=== PATIENT | female | born 1940 | race African-American/Black ===

== ENCOUNTER 2022-05-16 19:36 | Inpatient (IN) | payer OTHER ==
[2022-05-16] MEDS ORDERED: FUROSEMIDE 40 MG/4 ML INJECTABLE VIAL IVPUSH ONE ×2 (20:26→21:55)
[2022-05-16] MEDS ORDERED: FUROSEMIDE 40 MG/4 ML INJECTABLE VIAL ONE ×2 (20:36→22:35)
[2022-05-16 21:15] LABS: BASO % 0.4 % (0-2.0); EOS % 0.2 % (0-4.5); HEMATOCRIT 33.8 % (32.4-45.2); HEMOGLOBIN 10.8 GM/dL (10.7-15.3); LYMPH % 6.9 % (8-40); MCH 30.4 pg (25.7-33.7); MEAN CELL VOLUME 94.8 fl (80-96); MEAN PLT VOLUME 8.4 fl (7.5-11.1); MONO % 10.8 % (3.8-10.2); NEUT % 81.7 % (42.8-82.8); PLATELET COUNT 270 10^3/uL (134-434); RBC 3.57 M/mm3 (3.60-5.2); RDW 15.6 % (11.6-15.6)
[2022-05-16 21:17] LABS: VENOUS O2 SATURATION 85.3 % (70-80); VENOUS PH 7.202 (7.310-7.410)
[2022-05-16 21:19] LABS: VENOUS PCO2 136.7 mmHg (38-52)
[2022-05-16 21:46] LABS: CHLORIDE 94 mmol/L (98-107); SODIUM 145 mmol/L (136-145)
[2022-05-16 21:50] LABS: ALBUMIN 3.6 g/dl (3.4-5.0); BLOOD UREA NITROGEN 18.7 mg/dL (7-18); GLUCOSE,RANDOM 125 mg/dL (74-106); INR 0.99 (0.83-1.09); PROTHROMBIN TIME (PATIENT) 11.4 SEC (9.7-13.0)
[2022-05-16 21:53] LABS: ACTIVATED PTT 30.1 SECONDS (25.2-36.5); SGPT/ALT 27 U/L (13-61)
[2022-05-16 21:54] LABS: SGOT/AST 29 U/L (15-37)
[2022-05-16 21:55] LABS: BILIRUBIN,TOTAL 0.5 mg/dL (0.2-1)
[2022-05-16 21:56] LABS: ALK PHOS 48 U/L (45-117)
[2022-05-16 21:58] LABS: N-TERMINAL BNP 5199.5 pg/ml (5-450)
[2022-05-16 22:06] LABS: ANION GAP 6 MMOL/L (8-16); CO2 > 45 mmol/L (21-32)
[2022-05-16] MEDS ORDERED: ASPIRIN 81 MG CHEWABLE TABLETS PO ONE (22:20)
[2022-05-16] MEDS ORDERED: ENOXAPARIN NA (PORCINE) 60 MG/0.6 ML DISP.SYRIN SQ ONE ×2 (22:30→22:35)
[2022-05-16] MEDS ORDERED: ASPIRIN 81 MG CHEWABLE TABLETS ONE (22:35)
[2022-05-17] MEDS ORDERED: ALBUTEROL SO4 2.5/IPRATROPIUM 0.5 INH SOL 3 ML VIAL.NEB. NEB ONE ×2 (01:26→01:58)
[2022-05-17] MEDS ORDERED: LEVALBUTEROL HCL 0.63 MG/3 ML VIAL.NEB. IH PRN (02:03)
[2022-05-17] MEDS ORDERED: FUROSEMIDE 40 MG/4 ML INJECTABLE VIAL IVPUSH ONE (02:03)
[2022-05-17] MEDS ORDERED: methylPREDNISolone NA SUCC 125 MG/2 ML VIAL IVPUSH ONE (02:06)
[2022-05-17 02:26] LABS: ARTERIAL BLD GAS O2 SATURATION 98.2 % (95-98); ARTERIAL BLOOD GAS BASE EXCESS 22.1 mmol/L (-2-2); ARTERIAL BLOOD GAS PO2 160.3 mmHg (80-100)
[2022-05-17 02:28] LABS: ALLENS TEST POSITIVE
[2022-05-17 02:29] LABS: ARTERIAL BLOOD GAS pH 7.153 (7.350-7.450)
[2022-05-17 02:30] LABS: ARTERIAL BLOOD GAS PCO2 > 148.50 mmHg (35-45)
[2022-05-17 03:11] LABS: EPI CELLS 3 /uL (0-25.1); HYALINE CASTS 1 /uL (0-3.1); URINE APPEARANCE CLEAR; URINE BACTERIA 42 /uL (0-1359); URINE BILIRUBIN NEGATIVE (NEGATIVE); URINE COLOR YELLOW; URINE GLUCOSE (UA) NEGATIVE (NEGATIVE); URINE KETONE NEGATIVE (NEGATIVE); URINE LEUK ESTERASE 1+ (NEGATIVE); URINE NITRITE NEGATIVE (NEGATIVE); URINE PROTEIN TRACE (NEGATIVE); URINE RBC 12 /uL (0-23.9); URINE UROBILINOGEN 0.2 mg/dL (0.2-1.0); URINE WBC 2 /uL (0-25.8)
[2022-05-17 04:08] LABS: ALLENS TEST POSITIVE; ARTERIAL BLD GAS O2 SATURATION 84.9 % (95-98); ARTERIAL BLOOD GAS BASE EXCESS 23.8 mmol/L (-2-2); ARTERIAL BLOOD GAS PO2 67.3 mmHg (80-100); VENT MODE S/T; VENT RATE 16
[2022-05-17 04:09] LABS: ARTERIAL BLOOD GAS pH 7.183 (7.350-7.450)
[2022-05-17 04:10] LABS: ARTERIAL BLOOD GAS PCO2 > 148.50 mmHg (35-45)
[2022-05-17 05:42] LABS: ARTERIAL BLD GAS O2 SATURATION 91.1 % (95-98); ARTERIAL BLOOD GAS BASE EXCESS 22.5 mmol/L (-2-2); ARTERIAL BLOOD GAS PO2 78.1 mmHg (80-100); ARTERIAL BLOOD GAS pH 7.225 (7.350-7.450)
[2022-05-17 06:51] LABS: HEMATOCRIT 36.5 % (32.4-45.2); HEMOGLOBIN 11.2 GM/dL (10.7-15.3); MCH 29.1 pg (25.7-33.7); MCHC 30.6 g/dl (32.0-36.0); MEAN CELL VOLUME 95.1 fl (80-96); MEAN PLT VOLUME 9.2 fl (7.5-11.1); PLATELET COUNT 294 10^3/uL (134-434); RBC 3.84 M/mm3 (3.60-5.2); RDW 15.9 % (11.6-15.6); WHITE BLOOD COUNT 6.3 K/mm3 (4.0-10.0)
[2022-05-17 06:52] LABS: SODIUM 143 mmol/L (136-145)
[2022-05-17 06:53] LABS: CHLORIDE 89 mmol/L (98-107)
[2022-05-17 07:00] LABS: CHOLESTEROL 265 mg/dL (50-200); TRIGLYCERIDES 101 mg/dL (0-150)
[2022-05-17 07:01] LABS: CALCIUM 9.9 mg/dL (8.5-10.1); LACTIC ACID 2.4 mmol/L (0.4-2.0)
[2022-05-17 07:02] LABS: ALBUMIN 3.6 g/dl (3.4-5.0); BLOOD UREA NITROGEN 18.8 mg/dL (7-18); GLUCOSE,RANDOM 136 mg/dL (74-106); LDL CHOLESTEROL (ONLY SJRH) 115 mg/dL (5-100); MAGNESIUM 2.2 mg/dL (1.8-2.4)
[2022-05-17 07:04] LABS: ALK PHOS 50 U/L (45-117); CREATININE 0.9 mg/dL (0.55-1.3); HDL CHOLESTEROL 122 mg/dL (40-60); PHOSPHOROUS 5.2 mg/dL (2.5-4.9); SGOT/AST 25 U/L (15-37); SGPT/ALT 30 U/L (13-61)
[2022-05-17 07:06] LABS: BILIRUBIN,TOTAL 0.2 mg/dL (0.2-1); TOT PROT 7.5 g/dl (6.4-8.2)
[2022-05-17 07:19] LABS: ANION GAP 9 MMOL/L (8-16); CO2 > 45 mmol/L (21-32)
[2022-05-17 08:18] LABS: ARTERIAL BLD GAS O2 SATURATION 93.6 % (95-98); ARTERIAL BLOOD GAS BASE EXCESS 13.8 mmol/L (-2-2); ARTERIAL BLOOD GAS PO2 80.3 mmHg (80-100); ARTERIAL BLOOD GAS pH 7.288 (7.350-7.450)
[2022-05-17 08:21] LABS: ALLENS TEST POSITIVE
[2022-05-17 08:22] LABS: VENT MODE S/T; VENT RATE 18
[2022-05-17] MEDS ORDERED: ENOXAPARIN NA (PORCINE) 80 MG/0.8 ML DISP.SYRIN SQ ONE (09:29)
[2022-05-17] MEDS ORDERED: methylPREDNISolone NA SUCC 40 MG/1 ML VIAL ONE (09:29)
[2022-05-17] MEDS: ENOXAPARIN NA (PORCINE) 80 MG/0.8 ML DISP.SYRIN SQ SCH (09:35)
[2022-05-17] MEDS: methylPREDNISolone NA SUCC 40 MG/1 ML VIAL IVPUSH SCH ×2 (09:36→20:06)
[2022-05-17] MEDS ORDERED: PANTOPRAZOLE SODIUM 40 MG/100 ML BAG IVPB ONE (09:57)
[2022-05-17] MEDS ORDERED: CEFEPIME 1 GM/100 ML BAG IVPB ONE (09:57)
[2022-05-17] MEDS ORDERED: ENOXAPARIN NA (PORCINE) 40 MG/0.4 ML DISP.SYRIN SQ SCH (10:00)
[2022-05-17] MEDS ORDERED: CEFEPIME 0.5 GM in DEXTROSE 5%-WATER - 100 ML IVPB ONE (10:00)
[2022-05-17] MEDS: PANTOPRAZOLE SODIUM 40 MG/100 ML BAG IVPB SCH (10:26)
[2022-05-17 10:51] LABS: LACTIC ACID 2.6 mmol/L (0.4-2.0)
[2022-05-17] MEDS ORDERED: amLODIPine BESYLATE 5 MG TABLET (FP) ONE (10:56)
[2022-05-17] MEDS: amLODIPine BESYLATE 5 MG TABLET (FP) PO SCH (11:00)
[2022-05-17] MEDS: BUDESONIDE/FORMETEROL FUMARATE 80/4.5 mcg INHALER IH SCH ×2 (11:15→21:28)
[2022-05-17] MEDS: ALBUTEROL SO4 2.5/IPRATROPIUM 0.5 INH SOL 3 ML VIAL.NEB. NEB SCH ×3 (13:17→20:56)
[2022-05-17] MEDS ORDERED: AZITHROMYCIN IVPB 500 MG/250 ML BAG IVPB STA (14:36)
[2022-05-17] MEDS: LACTATED RINGERS SOLUTION 1,000 ML/1,000 ML INFUS.BAG IV SCH (21:45)
[2022-05-17] MEDS ORDERED: DEXMEDETOMIDINE PREMIX 400 MCG/100 ML BAG IVPB SCH (22:00)
[2022-05-18] MEDS: ALBUTEROL SO4 2.5/IPRATROPIUM 0.5 INH SOL 3 ML VIAL.NEB. NEB SCH ×6 (00:44→20:19)
[2022-05-18] MEDS: methylPREDNISolone NA SUCC 40 MG/1 ML VIAL IVPUSH SCH ×3 (01:07→17:11)
[2022-05-18 06:57] LABS: HEMATOCRIT 31.6 % (32.4-45.2); HEMOGLOBIN 10.2 GM/dL (10.7-15.3); MCH 30.3 pg (25.7-33.7); MCHC 32.4 g/dl (32.0-36.0); MEAN CELL VOLUME 93.7 fl (80-96); MEAN PLT VOLUME 9.1 fl (7.5-11.1); PLATELET COUNT 254 10^3/uL (134-434); RBC 3.38 M/mm3 (3.60-5.2); RDW 15.2 % (11.6-15.6); WHITE BLOOD COUNT 5.9 K/mm3 (4.0-10.0)
[2022-05-18 07:18] LABS: CHLORIDE 90 mmol/L (98-107); SODIUM 143 mmol/L (136-145)
[2022-05-18 07:23] LABS: CALCIUM 9.5 mg/dL (8.5-10.1); GLUCOSE,RANDOM 106 mg/dL (74-106)
[2022-05-18 07:24] LABS: ALBUMIN 3.5 g/dl (3.4-5.0); BLOOD UREA NITROGEN 16.2 mg/dL (7-18); MAGNESIUM 2.1 mg/dL (1.8-2.4)
[2022-05-18 07:27] LABS: CREATININE 0.8 mg/dL (0.55-1.3); SGOT/AST 27 U/L (15-37); SGPT/ALT 24 U/L (13-61)
[2022-05-18 07:30] LABS: ALK PHOS 43 U/L (45-117); BILIRUBIN,TOTAL 0.4 mg/dL (0.2-1); PHOSPHOROUS 3.4 mg/dL (2.5-4.9); TOT PROT 6.7 g/dl (6.4-8.2)
[2022-05-18 07:32] LABS: N-TERMINAL BNP 2666.5 pg/ml (5-450)
[2022-05-18 07:43] LABS: ANION GAP 8 MMOL/L (8-16); CO2 > 45 mmol/L (21-32)
[2022-05-18] MEDS: ENOXAPARIN NA (PORCINE) 80 MG/0.8 ML DISP.SYRIN SQ SCH (09:33)
[2022-05-18] MEDS: amLODIPine BESYLATE 5 MG TABLET (FP) PO SCH (09:34)
[2022-05-18] MEDS: AZITHROMYCIN IVPB 500 MG/250 ML BAG IVPB SCH (09:35)
[2022-05-18] MEDS: BUDESONIDE/FORMETEROL FUMARATE 80/4.5 mcg INHALER IH SCH ×2 (09:35→21:22)
[2022-05-18] MEDS: PANTOPRAZOLE SODIUM 40 MG/100 ML BAG IVPB SCH (09:43)
[2022-05-18] MEDS ORDERED: PANTOPRAZOLE SODIUM 40 MG VIAL IVPB SCH ×2 (10:00→10:15)
[2022-05-18] MEDS ORDERED: amLODIPine BESYLATE 2.5 MG TABLET (FP) PO SCH (10:14)
[2022-05-18 10:17] LABS: ANISOCYTOSIS 0; HELMET CELLS 0; HOWELL-JOLLY BODIES 0; MACROCYTOSIS 0; OVALOCYTE 0; ROULEAU 0; SICKELED CELLS 0; TARGET CELLS 0; TEAR DROP CELLS 0; TOXIC GRANULATION 0
[2022-05-18] MEDS ORDERED: ACETAMINOPHEN 325 MG TABLET (FP) PO PRN (10:18)
[2022-05-18] MEDS: LISINOPRIL 20 MG TABLET PO SCH (12:09)
[2022-05-18] MEDS: MINERAL OIL/PET HY-PHL TOPICAL OINTMENT 454 GM JAR TP SCH ×2 (12:10→21:19)
[2022-05-18] MEDS: TIOTROPIUM BROMIDE 2.5 MCG (SPIRIVA) RESPIMAT INHALER IH SCH (12:10)
[2022-05-18] MEDS: ATORVASTATIN CA 40 MG TABLET (FP) PO SCH (21:19)
[2022-05-18] MEDS: QUEtiapine FUMARATE 25 MG TABLET PO SCH (21:20)
[2022-05-18] MEDS: LACTATED RINGERS SOLUTION 1,000 ML/1,000 ML INFUS.BAG IV SCH (21:22)
[2022-05-19] MEDS: ALBUTEROL SO4 2.5/IPRATROPIUM 0.5 INH SOL 3 ML VIAL.NEB. NEB SCH ×7 (00:24→23:44)
[2022-05-19] MEDS: methylPREDNISolone NA SUCC 40 MG/1 ML VIAL IVPUSH SCH ×3 (01:04→17:57)
[2022-05-19 07:53] LABS: CHLORIDE 92 mmol/L (98-107); SODIUM 143 mmol/L (136-145)
[2022-05-19 07:56] LABS: CALCIUM 9.6 mg/dL (8.5-10.1)
[2022-05-19 07:57] LABS: ALBUMIN 3.1 g/dl (3.4-5.0); BLOOD UREA NITROGEN 21.8 mg/dL (7-18); GLUCOSE,RANDOM 85 mg/dL (74-106); HEMATOCRIT 31.5 % (32.4-45.2); MAGNESIUM 2.1 mg/dL (1.8-2.4); MCH 29.9 pg (25.7-33.7); MCHC 31.8 g/dl (32.0-36.0); MEAN CELL VOLUME 94.1 fl (80-96); MEAN PLT VOLUME 9.9 fl (7.5-11.1); PLATELET COUNT 256 10^3/uL (134-434); RBC 3.35 M/mm3 (3.60-5.2); RDW 15.1 % (11.6-15.6); WHITE BLOOD COUNT 6.8 K/mm3 (4.0-10.0)
[2022-05-19 08:00] LABS: CREATININE 0.8 mg/dL (0.55-1.3); SGOT/AST 18 U/L (15-37); SGPT/ALT 19 U/L (13-61)
[2022-05-19 08:01] LABS: BILIRUBIN,TOTAL 0.4 mg/dL (0.2-1); TOT PROT 5.9 g/dl (6.4-8.2)
[2022-05-19 08:02] LABS: ALK PHOS 39 U/L (45-117)
[2022-05-19 08:12] LABS: ANION GAP 6 MMOL/L (8-16); CO2 > 45 mmol/L (21-32)
[2022-05-19 09:38] LABS: ANISOCYTOSIS 0; MACROCYTOSIS 1+
[2022-05-19] MEDS: AZITHROMYCIN IVPB 500 MG/250 ML BAG IVPB SCH (09:42)
[2022-05-19] MEDS: LISINOPRIL 20 MG TABLET PO SCH (09:42)
[2022-05-19] MEDS: ENOXAPARIN NA (PORCINE) 80 MG/0.8 ML DISP.SYRIN SQ SCH (09:43)
[2022-05-19] MEDS: TIOTROPIUM BROMIDE 2.5 MCG (SPIRIVA) RESPIMAT INHALER IH SCH (09:44)
[2022-05-19] MEDS: MINERAL OIL/PET HY-PHL TOPICAL OINTMENT 454 GM JAR TP SCH ×2 (09:44→21:02)
[2022-05-19] MEDS: BUDESONIDE/FORMETEROL FUMARATE 80/4.5 mcg INHALER IH SCH ×2 (09:44→21:03)
[2022-05-19] MEDS ORDERED: MULTIVITAMINS (DAILY MVI) TABLET (FP) PO SCH (10:00)
[2022-05-19] MEDS: QUEtiapine FUMARATE 25 MG TABLET PO SCH (21:03)
[2022-05-19] MEDS: ATORVASTATIN CA 40 MG TABLET (FP) PO SCH (21:03)
[2022-05-19] MEDS ORDERED: LEVALBUTEROL HCL 0.63 MG/3 ML VIAL.NEB. IH PRN (23:44)
[2022-05-19] MEDS ORDERED: ACETAMINOPHEN 325 MG TABLET (FP) PO PRN (23:44)
[2022-05-20] MEDS: ALBUTEROL SO4 2.5/IPRATROPIUM 0.5 INH SOL 3 ML VIAL.NEB. NEB SCH ×7 (00:43→23:06)
[2022-05-20] MEDS: methylPREDNISolone NA SUCC 40 MG/1 ML VIAL IVPUSH SCH ×3 (01:26→17:19)
[2022-05-20 08:57] LABS: BASO % 0.3 % (0-2.0); HEMATOCRIT 32.2 % (32.4-45.2); HEMOGLOBIN 10.2 GM/dL (10.7-15.3); LYMPH % 6.1 % (8-40); MCH 29.9 pg (25.7-33.7); MCHC 31.7 g/dl (32.0-36.0); MEAN CELL VOLUME 94.4 fl (80-96); MEAN PLT VOLUME 8.9 fl (7.5-11.1); MONO % 10.9 % (3.8-10.2); NEUT % 82.7 % (42.8-82.8); PLATELET COUNT 245 10^3/uL (134-434); RBC 3.41 M/mm3 (3.60-5.2); RDW 15.4 % (11.6-15.6); WHITE BLOOD COUNT 7.1 K/mm3 (4.0-10.0)
[2022-05-20 09:17] LABS: CHLORIDE 93 mmol/L (98-107); SODIUM 143 mmol/L (136-145)
[2022-05-20 09:22] LABS: CALCIUM 9.3 mg/dL (8.5-10.1)
[2022-05-20 09:23] LABS: ALBUMIN 2.9 g/dl (3.4-5.0); BLOOD UREA NITROGEN 24.5 mg/dL (7-18); GLUCOSE,RANDOM 99 mg/dL (74-106); MAGNESIUM 2.4 mg/dL (1.8-2.4)
[2022-05-20 09:25] LABS: SGOT/AST 16 U/L (15-37)
[2022-05-20 09:26] LABS: CREATININE 0.7 mg/dL (0.55-1.3); SGPT/ALT 20 U/L (13-61)
[2022-05-20 09:27] LABS: ALK PHOS 35 U/L (45-117); BILIRUBIN,TOTAL 0.2 mg/dL (0.2-1); TOT PROT 5.8 g/dl (6.4-8.2)
[2022-05-20 09:33] LABS: ANION GAP 5 MMOL/L (8-16); CO2 > 45 mmol/L (21-32)
[2022-05-20] MEDS: LISINOPRIL 20 MG TABLET PO SCH (10:45)
[2022-05-20] MEDS: amLODIPine BESYLATE 2.5 MG TABLET (FP) PO SCH (10:46)
[2022-05-20] MEDS: MULTIVITAMINS (DAILY MVI) TABLET (FP) PO SCH (10:47)
[2022-05-20] MEDS: AZITHROMYCIN IVPB 500 MG/250 ML BAG IVPB SCH (10:49)
[2022-05-20] MEDS: PANTOPRAZOLE SODIUM 40 MG VIAL IVPB SCH (10:49)
[2022-05-20] MEDS: BUDESONIDE/FORMETEROL FUMARATE 80/4.5 mcg INHALER IH SCH ×2 (11:06→21:39)
[2022-05-20] MEDS: TIOTROPIUM BROMIDE 2.5 MCG (SPIRIVA) RESPIMAT INHALER IH SCH (11:06)
[2022-05-20] MEDS: ENOXAPARIN NA (PORCINE) 80 MG/0.8 ML DISP.SYRIN SQ SCH (11:07)
[2022-05-20] MEDS: MINERAL OIL/PET HY-PHL TOPICAL OINTMENT 454 GM JAR TP SCH ×2 (11:13→21:25)
[2022-05-20] MEDS: NICOTINE 14 MG/24 HOURS TOPICAL PATCH TD SCH (15:01)
[2022-05-20] MEDS: ATORVASTATIN CA 40 MG TABLET (FP) PO SCH (21:36)
[2022-05-20] MEDS: QUEtiapine FUMARATE 25 MG TABLET PO SCH (21:36)
[2022-05-21] MEDS: methylPREDNISolone NA SUCC 40 MG/1 ML VIAL IVPUSH SCH ×3 (01:48→18:29)
[2022-05-21] MEDS: ALBUTEROL SO4 2.5/IPRATROPIUM 0.5 INH SOL 3 ML VIAL.NEB. NEB SCH ×6 (03:45→23:07)
[2022-05-21] MEDS: amLODIPine BESYLATE 2.5 MG TABLET (FP) PO SCH (11:05)
[2022-05-21] MEDS: LISINOPRIL 20 MG TABLET PO SCH (11:05)
[2022-05-21] MEDS: AZITHROMYCIN IVPB 500 MG/250 ML BAG IVPB SCH (11:05)
[2022-05-21] MEDS: BUDESONIDE/FORMETEROL FUMARATE 80/4.5 mcg INHALER IH SCH ×2 (11:06→21:33)
[2022-05-21] MEDS: TIOTROPIUM BROMIDE 2.5 MCG (SPIRIVA) RESPIMAT INHALER IH SCH (11:06)
[2022-05-21] MEDS: MINERAL OIL/PET HY-PHL TOPICAL OINTMENT 454 GM JAR TP SCH ×2 (11:06→21:32)
[2022-05-21] MEDS: ENOXAPARIN NA (PORCINE) 80 MG/0.8 ML DISP.SYRIN SQ SCH (11:06)
[2022-05-21] MEDS: NICOTINE 14 MG/24 HOURS TOPICAL PATCH TD SCH (11:06)
[2022-05-21] MEDS: PANTOPRAZOLE SODIUM 40 MG VIAL IVPB SCH (11:06)
[2022-05-21] MEDS: MULTIVITAMINS (DAILY MVI) TABLET (FP) PO SCH (11:06)
[2022-05-21] MEDS: QUEtiapine FUMARATE 25 MG TABLET PO SCH (21:33)
[2022-05-21] MEDS: ATORVASTATIN CA 40 MG TABLET (FP) PO SCH (21:33)
[2022-05-22] MEDS: methylPREDNISolone NA SUCC 40 MG/1 ML VIAL IVPUSH SCH ×3 (02:20→17:49)
[2022-05-22] MEDS: ALBUTEROL SO4 2.5/IPRATROPIUM 0.5 INH SOL 3 ML VIAL.NEB. NEB SCH ×5 (04:40→20:20)
[2022-05-22] MEDS: MINERAL OIL/PET HY-PHL TOPICAL OINTMENT 454 GM JAR TP SCH ×2 (09:08→21:47)
[2022-05-22] MEDS: ENOXAPARIN NA (PORCINE) 80 MG/0.8 ML DISP.SYRIN SQ SCH (09:08)
[2022-05-22] MEDS: LISINOPRIL 20 MG TABLET PO SCH (09:09)
[2022-05-22] MEDS: amLODIPine BESYLATE 2.5 MG TABLET (FP) PO SCH (09:09)
[2022-05-22] MEDS: PANTOPRAZOLE SODIUM 40 MG VIAL IVPB SCH (09:09)
[2022-05-22] MEDS: NICOTINE 14 MG/24 HOURS TOPICAL PATCH TD SCH (09:09)
[2022-05-22] MEDS: BUDESONIDE/FORMETEROL FUMARATE 80/4.5 mcg INHALER IH SCH ×2 (09:09→21:47)
[2022-05-22] MEDS: TIOTROPIUM BROMIDE 2.5 MCG (SPIRIVA) RESPIMAT INHALER IH SCH (09:09)
[2022-05-22] MEDS: MULTIVITAMINS (DAILY MVI) TABLET (FP) PO SCH (09:10)
[2022-05-22] MEDS: AZITHROMYCIN IVPB 500 MG/250 ML BAG IVPB SCH (09:11)
[2022-05-22 11:38] LABS: BASO % 0.1 % (0-2.0); HEMOGLOBIN 10.4 GM/dL (10.7-15.3); LYMPH % 3.8 % (8-40); MCH 28.6 pg (25.7-33.7); MCHC 29.8 g/dl (32.0-36.0); MEAN CELL VOLUME 95.8 fl (80-96); MEAN PLT VOLUME 9.3 fl (7.5-11.1); MONO % 6.2 % (3.8-10.2); NEUT % 89.9 % (42.8-82.8); PLATELET COUNT 284 10^3/uL (134-434); RBC 3.66 M/mm3 (3.60-5.2); RDW 15.2 % (11.6-15.6); WHITE BLOOD COUNT 5.5 K/mm3 (4.0-10.0)
[2022-05-22 12:02] LABS: CHLORIDE 93 mmol/L (98-107); SODIUM 145 mmol/L (136-145)
[2022-05-22 12:34] LABS: BLOOD UREA NITROGEN 26.3 mg/dL (7-18)
[2022-05-22 12:36] LABS: CALCIUM 9.9 mg/dL (8.5-10.1); GLUCOSE,RANDOM 156 mg/dL (74-106)
[2022-05-22 12:37] LABS: ALBUMIN 3.2 g/dl (3.4-5.0); MAGNESIUM 2.5 mg/dL (1.8-2.4)
[2022-05-22 12:39] LABS: CREATININE 0.8 mg/dL (0.55-1.3); SGOT/AST 17 U/L (15-37); SGPT/ALT 28 U/L (13-61)
[2022-05-22 12:40] LABS: BILIRUBIN,TOTAL 0.3 mg/dL (0.2-1)
[2022-05-22 12:44] LABS: ALK PHOS 38 U/L (45-117)
[2022-05-22 12:47] LABS: ANION GAP 7 MMOL/L (8-16); CO2 > 45 mmol/L (21-32)
[2022-05-22 20:04] VITALS: BMI 20.1
[2022-05-22] MEDS: ATORVASTATIN CA 40 MG TABLET (FP) PO SCH (21:47)
[2022-05-22] MEDS: QUEtiapine FUMARATE 25 MG TABLET PO SCH (21:47)
[2022-05-23] MEDS: ALBUTEROL SO4 2.5/IPRATROPIUM 0.5 INH SOL 3 ML VIAL.NEB. NEB SCH ×6 (01:03→20:05)
[2022-05-23] MEDS: methylPREDNISolone NA SUCC 40 MG/1 ML VIAL IVPUSH SCH ×3 (01:05→17:44)
[2022-05-23] MEDS: amLODIPine BESYLATE 2.5 MG TABLET (FP) PO SCH (10:41)
[2022-05-23] MEDS: ENOXAPARIN NA (PORCINE) 80 MG/0.8 ML DISP.SYRIN SQ SCH (10:41)
[2022-05-23] MEDS: NICOTINE 14 MG/24 HOURS TOPICAL PATCH TD SCH (10:41)
[2022-05-23] MEDS: AZITHROMYCIN IVPB 500 MG/250 ML BAG IVPB SCH (10:42)
[2022-05-23] MEDS: PANTOPRAZOLE SODIUM 40 MG VIAL IVPB SCH (10:42)
[2022-05-23] MEDS: MULTIVITAMINS (DAILY MVI) TABLET (FP) PO SCH (10:42)
[2022-05-23] MEDS: MINERAL OIL/PET HY-PHL TOPICAL OINTMENT 454 GM JAR TP SCH ×2 (10:44→21:10)
[2022-05-23] MEDS: LISINOPRIL 20 MG TABLET PO SCH (10:44)
[2022-05-23] MEDS: BUDESONIDE/FORMETEROL FUMARATE 80/4.5 mcg INHALER IH SCH ×2 (10:45→21:09)
[2022-05-23] MEDS: TIOTROPIUM BROMIDE 2.5 MCG (SPIRIVA) RESPIMAT INHALER IH SCH (10:45)
[2022-05-23 11:13] LABS: BASO % 0.2 % (0-2.0); HEMATOCRIT 33.2 % (32.4-45.2); HEMOGLOBIN 10.7 GM/dL (10.7-15.3); LYMPH % 4.9 % (8-40); MCH 30.4 pg (25.7-33.7); MCHC 32.1 g/dl (32.0-36.0); MEAN CELL VOLUME 94.6 fl (80-96); MEAN PLT VOLUME 8.8 fl (7.5-11.1); MONO % 9.1 % (3.8-10.2); NEUT % 85.8 % (42.8-82.8); PLATELET COUNT 248 10^3/uL (134-434); RBC 3.51 M/mm3 (3.60-5.2); WHITE BLOOD COUNT 5.7 K/mm3 (4.0-10.0)
[2022-05-23 11:39] LABS: CHLORIDE 94 mmol/L (98-107); SODIUM 145 mmol/L (136-145)
[2022-05-23 11:46] LABS: CALCIUM 9.8 mg/dL (8.5-10.1)
[2022-05-23 11:47] LABS: ALBUMIN 3.2 g/dl (3.4-5.0); BLOOD UREA NITROGEN 30.3 mg/dL (7-18); GLUCOSE,RANDOM 110 mg/dL (74-106); MAGNESIUM 2.6 mg/dL (1.8-2.4)
[2022-05-23 11:50] LABS: CREATININE 0.7 mg/dL (0.55-1.3); SGOT/AST 19 U/L (15-37); SGPT/ALT 30 U/L (13-61)
[2022-05-23 11:52] LABS: BILIRUBIN,TOTAL 0.4 mg/dL (0.2-1)
[2022-05-23 11:53] LABS: ALK PHOS 38 U/L (45-117); ANION GAP 6 MMOL/L (8-16); CO2 > 45 mmol/L (21-32)
[2022-05-23] MEDS: ATORVASTATIN CA 40 MG TABLET (FP) PO SCH (21:09)
[2022-05-23] MEDS: QUEtiapine FUMARATE 25 MG TABLET PO SCH (21:09)
[2022-05-24] MEDS: methylPREDNISolone NA SUCC 40 MG/1 ML VIAL IVPUSH SCH ×3 (01:56→17:06)
[2022-05-24] MEDS: ALBUTEROL SO4 2.5/IPRATROPIUM 0.5 INH SOL 3 ML VIAL.NEB. NEB SCH ×6 (04:00→20:57)
[2022-05-24] MEDS: NICOTINE 14 MG/24 HOURS TOPICAL PATCH TD SCH (09:23)
[2022-05-24] MEDS: AZITHROMYCIN IVPB 500 MG/250 ML BAG IVPB SCH (09:23)
[2022-05-24] MEDS: MULTIVITAMINS (DAILY MVI) TABLET (FP) PO SCH (09:24)
[2022-05-24] MEDS: LISINOPRIL 20 MG TABLET PO SCH (09:24)
[2022-05-24] MEDS: amLODIPine BESYLATE 2.5 MG TABLET (FP) PO SCH (09:24)
[2022-05-24] MEDS: ENOXAPARIN NA (PORCINE) 80 MG/0.8 ML DISP.SYRIN SQ SCH (09:25)
[2022-05-24] MEDS: MINERAL OIL/PET HY-PHL TOPICAL OINTMENT 454 GM JAR TP SCH ×2 (09:26→21:29)
[2022-05-24] MEDS: PANTOPRAZOLE SODIUM 40 MG VIAL IVPB SCH (09:26)
[2022-05-24] MEDS: TIOTROPIUM BROMIDE 2.5 MCG (SPIRIVA) RESPIMAT INHALER IH SCH (09:26)
[2022-05-24 10:30] LABS: BASO % 0.3 % (0-2.0); EOS % 0.4 % (0-4.5); HEMATOCRIT 36.6 % (32.4-45.2); HEMOGLOBIN 11.3 GM/dL (10.7-15.3); LYMPH % 8.1 % (8-40); MCH 29.2 pg (25.7-33.7); MEAN CELL VOLUME 94.2 fl (80-96); MEAN PLT VOLUME 9.1 fl (7.5-11.1); MONO % 13.6 % (3.8-10.2); NEUT % 77.6 % (42.8-82.8); PLATELET COUNT 270 10^3/uL (134-434); RBC 3.89 M/mm3 (3.60-5.2); RDW 14.9 % (11.6-15.6)
[2022-05-24] MEDS: BUDESONIDE/FORMETEROL FUMARATE 80/4.5 mcg INHALER IH SCH ×2 (10:31→21:23)
[2022-05-24 10:52] LABS: CHLORIDE 94 mmol/L (98-107); SODIUM 144 mmol/L (136-145)
[2022-05-24 11:03] LABS: CALCIUM 9.8 mg/dL (8.5-10.1); GLUCOSE,RANDOM 97 mg/dL (74-106)
[2022-05-24 11:04] LABS: ALBUMIN 3.2 g/dl (3.4-5.0); BLOOD UREA NITROGEN 22.9 mg/dL (7-18)
[2022-05-24 11:05] LABS: MAGNESIUM 2.3 mg/dL (1.8-2.4)
[2022-05-24 11:07] LABS: CREATININE 0.6 mg/dL (0.55-1.3); SGOT/AST 35 U/L (15-37); SGPT/ALT 48 U/L (13-61)
[2022-05-24 11:08] LABS: BILIRUBIN,TOTAL 0.5 mg/dL (0.2-1); TOT PROT 6.2 g/dl (6.4-8.2)
[2022-05-24 11:09] LABS: ALK PHOS 44 U/L (45-117)
[2022-05-24 11:15] LABS: ANION GAP 5 MMOL/L (8-16); CO2 > 45 mmol/L (21-32)
[2022-05-24] MEDS: QUEtiapine FUMARATE 25 MG TABLET PO SCH (21:23)
[2022-05-24] MEDS: ATORVASTATIN CA 40 MG TABLET (FP) PO SCH (21:23)
[2022-05-25] MEDS: methylPREDNISolone NA SUCC 40 MG/1 ML VIAL IVPUSH SCH ×2 (01:31→11:04)
[2022-05-25] MEDS: ENOXAPARIN NA (PORCINE) 80 MG/0.8 ML DISP.SYRIN SQ SCH (11:03)
[2022-05-25] MEDS: NICOTINE 14 MG/24 HOURS TOPICAL PATCH TD SCH (11:03)
[2022-05-25] MEDS: MULTIVITAMINS (DAILY MVI) TABLET (FP) PO SCH (11:03)
[2022-05-25] MEDS: PANTOPRAZOLE SODIUM 40 MG VIAL IVPB SCH (11:03)
[2022-05-25] MEDS: LISINOPRIL 20 MG TABLET PO SCH (11:03)
[2022-05-25] MEDS: amLODIPine BESYLATE 2.5 MG TABLET (FP) PO SCH (11:03)
[2022-05-25] MEDS: MINERAL OIL/PET HY-PHL TOPICAL OINTMENT 454 GM JAR TP SCH ×2 (11:03→21:20)
[2022-05-25] MEDS: BUDESONIDE/FORMETEROL FUMARATE 80/4.5 mcg INHALER IH SCH ×2 (11:04→21:20)
[2022-05-25] MEDS: TIOTROPIUM BROMIDE 2.5 MCG (SPIRIVA) RESPIMAT INHALER IH SCH (11:04)
[2022-05-25] MEDS: AZITHROMYCIN IVPB 500 MG/250 ML BAG IVPB SCH (11:04)
[2022-05-25] MEDS ORDERED: methylPREDNISolone NA SUCC 40 MG/1 ML VIAL IVPUSH SCH (12:00)
[2022-05-25] MEDS: ATORVASTATIN CA 40 MG TABLET (FP) PO SCH (21:20)
[2022-05-25] MEDS: QUEtiapine FUMARATE 25 MG TABLET PO SCH (21:20)
[2022-05-25 23:35] VITALS: RESP 18
[2022-05-26] MEDS: predniSONE 20 MG TABLET (UD) PO SCH (10:57)
[2022-05-26] MEDS: MINERAL OIL/PET HY-PHL TOPICAL OINTMENT 454 GM JAR TP SCH ×2 (10:58→21:55)
[2022-05-26] MEDS: LISINOPRIL 20 MG TABLET PO SCH (10:58)
[2022-05-26] MEDS: MULTIVITAMINS (DAILY MVI) TABLET (FP) PO SCH (10:58)
[2022-05-26] MEDS: ENOXAPARIN NA (PORCINE) 80 MG/0.8 ML DISP.SYRIN SQ SCH (10:58)
[2022-05-26] MEDS: amLODIPine BESYLATE 2.5 MG TABLET (FP) PO SCH (10:58)
[2022-05-26] MEDS: NICOTINE 14 MG/24 HOURS TOPICAL PATCH TD SCH (10:58)
[2022-05-26] MEDS: TIOTROPIUM BROMIDE 2.5 MCG (SPIRIVA) RESPIMAT INHALER IH SCH (10:59)
[2022-05-26] MEDS: PANTOPRAZOLE 40 MG TABLET PO SCH (10:59)
[2022-05-26] MEDS: BUDESONIDE/FORMETEROL FUMARATE 80/4.5 mcg INHALER IH SCH ×2 (10:59→21:55)
[2022-05-26] MEDS: PANTOPRAZOLE SODIUM 40 MG VIAL IVPB SCH (10:59)
[2022-05-26] MEDS: ATORVASTATIN CA 40 MG TABLET (FP) PO SCH (21:54)
[2022-05-26] MEDS: QUEtiapine FUMARATE 25 MG TABLET PO SCH (21:55)
[2022-05-27 09:07] VITALS: BP 131/58; PULSE 82; TEMP 98
[2022-05-27] MEDS: NICOTINE 14 MG/24 HOURS TOPICAL PATCH TD SCH (09:58)
[2022-05-27] MEDS: ENOXAPARIN NA (PORCINE) 80 MG/0.8 ML DISP.SYRIN SQ SCH (09:59)
[2022-05-27] MEDS: predniSONE 20 MG TABLET (UD) PO SCH (10:00)
[2022-05-27] MEDS ORDERED: FLUTICASONE/UMECLIDIN/VILANTER(100-62.5-25 TRELEGY ELLIPTA) INAHLER IH SCH (10:00)
[2022-05-27] MEDS: MULTIVITAMINS (DAILY MVI) TABLET (FP) PO SCH (10:01)
[2022-05-27] MEDS: PANTOPRAZOLE 40 MG TABLET PO SCH (10:01)
[2022-05-27] MEDS: amLODIPine BESYLATE 2.5 MG TABLET (FP) PO SCH (10:01)
[2022-05-27] MEDS: LISINOPRIL 20 MG TABLET PO SCH (10:02)
[2022-05-27] MEDS: MINERAL OIL/PET HY-PHL TOPICAL OINTMENT 454 GM JAR TP SCH (10:10)
[2022-05-27 13:28] LABS: ARTERIAL BLD GAS O2 SATURATION 94.3 % (95-98); ARTERIAL BLOOD GAS BASE EXCESS 25.1 mmol/L (-2-2); ARTERIAL BLOOD GAS PO2 87.7 mmHg (80-100); ARTERIAL BLOOD GAS pH 7.277 (7.350-7.450)
[2022-05-27 13:33] LABS: ALLENS TEST POSITIVE
[2022-05-29] MEDS ORDERED: predniSONE 10 MG TABLET (UD) PO SCH (10:00)
[2022-06-01] MEDS ORDERED: predniSONE 10 MG TABLET (UD) PO SCH (10:00)
== END 2022-05-27 14:50 | DRG 189 ==
LOC: JER 19:36 → JERBED 23:31 → JICU 05-17 13:40 → J6S 05-19 23:39
PROVIDERS: ADMIT Internal Medicine; ATTEND Nurse Practitioner Family
DX: J96.22 Acute and chronic respiratory failure with hypercapnia (principal); G93.41 Metabolic encephalopathy; J44.1 Chronic obstructive pulmonary disease with (acute) exacerbation; I24.8 Other forms of acute ischemic heart disease; R64 Cachexia; J96.21 Acute and chronic respiratory failure with hypoxia; J45.909 Unspecified asthma, uncomplicated; E78.5 Hyperlipidemia, unspecified; I11.0 Hypertensive heart disease with heart failure; I25.10 Atherosclerotic heart disease of native coronary artery without angina pectoris; Z99.81 Dependence on supplemental oxygen; F03.90 Unspecified dementia, unspecified severity, without behavioral disturbance, psychotic disturbance, mood disturbance, and anxiety; F17.200 Nicotine dependence, unspecified, uncomplicated; Z98.61 Coronary angioplasty status; Z68.20 Body mass index [BMI] 20.0-20.9, adult
CPT/HCPCS: 0241U-QW; 36415; 36600; 70450-TC; 71045-TC-FY; 80053; 80061; 81003; 82550; 82803; 83036; 83605; 83735; 83880; 84100; 84436; 84443; 84484; 85025; 85027; 85610; 85730; 86850; 86900; 86901; 87086; 93005; 93010; 93306-TC; 93970-TC; 94150; 94640; 94660; 97116-GP; 97162-GP; 99285-25; C9803-CS; U0003; U0005